=== PATIENT | female | born 1975 | race Caucasian/White ===

== ENCOUNTER 2024-10-01 12:24 | Emergency (ER) | payer MEDICAID ==
[~2024-10-01] VITALS: Ht 167.6 cm; Wt 77.6 kg
[2024-10-01 12:54] LABS: BASOPHILS 1.1 % (0-2); EOSINOPHILS 1.5 % (0-6); HEMATOCRIT 40.1 % (35.0-50.0); HEMOGLOBIN 13.6 g/dL (12.0-18.0); MCH 31.2 (27-36); MCHC 33.9 g/dl (30-36); MCV 91.8 fl (81-99); MONOCYTES 7.1 % (0-12); NEUTROPHILS 53.3 % (39-80); PLATELET COUNT 278 K/uL (140-440); RBC 4.37 M/ul (4.3-5.7); RDW 13.9 (10.5-15.0)
[2024-10-01 13:13] LABS: ALBUMIN 3.5 g/dL (3.4-5.0); ALBUMIN/GLOBULIN RATIO 1.13 (1.1-2.4); ALKALINE PHOSPHATASE 75 U/L (46-116); ALT (SGPT) 20 U/L (14-59); ANION GAP 14.3 (7-21); AST (SGOT) 11 U/L (15-37); BILIRUBIN, TOTAL 0.6 mg/dL (0.2-1.0); BUN/CREATININE RATIO 15.58 (6.0-28.6); CALCIUM 8.6 mg/dL (8.5-10.1); CARBON DIOXIDE 24 mmol/L (21-32); CHLORIDE 104 mmol/L (98-107); CREATININE, SERUM 0.77 mg/dL (0.55-1.02); GLOMERULAR FILTRATION RATE,EST 95 mL/min (>60); MAGNESIUM 1.9 mg/dL (1.8-2.4); POTASSIUM 3.3 mmol/L (3.5-5.1); PROTEIN, TOTAL 6.6 g/dL (6.4-8.2); UREA NITROGEN 12 mg/dL (7-18)
[2024-10-01] MEDS ORDERED: POTASSIUM CHLORIDE 10 MEQ TABCR PO ONE (13:30)
[2024-10-01 15:03] VITALS: BP 105/74
--- NOTE | 2024-10-02 18:49 | EKG ---
[facility] [address] [facility] [place] [address] Signed Normal sinus rhythm Normal ECG No previous ECGs available Confirmed by Jason Shaw MD () on 10/02/2024 6:49:37 PM Electronically Signed By: JASON SHAW MD 10/02/24 1849 PATIENT NAME: RAPHAEL HART Electrocardiogram DATE OF : 77 PHYSICIAN: JASON SHAW MD REPORT #: [id number] REPORT IS CONFIDENTIAL AND NOT TO BE RELEASED WITHOUT AUTHORIZATION
== END 2024-10-01 15:03 | disposition home or self-care (01) ==
LOC: ED 12:24
PROVIDERS: Emergency Medicine
DX: R55 Syncope and collapse (principal)
CPT/HCPCS: 36415; 80053; 83735; 84484; 85025; 93005; 93010; 99284; A9270